=== PATIENT | female | born 1965 | race Caucasian/White ===

== ENCOUNTER 2025-05-23 18:05 | Emergency (ER) | payer OTHER, SELFPAY ==
[2025-05-23 18:21] VITALS: BP 175/80
[2025-05-23 18:57] LABS: Urine Character Clear (Clear)
[2025-05-23 19:00] LABS: Hematocrit 41.9 % (37.0-47.0); Hemoglobin 14.2 g/dL (12.0-16.0); Mean Corp Hgb Conc. 33.9 g/dL (33.0-37.0); Mean Corpuscular Volume 86.7 fL (81.0-99.0); Nucleated Red Blood Cells % 0 %; Platelet Count 397 10^3/uL (130-400); Red Cell Dist. Width 13.8 % (11.5-14.5)
[2025-05-23 19:11] LABS: ALT (SGPT) 23 U/L (0-35); AST (SGOT) 19 U/L (14-36); Albumin 4.8 g/dl (3.5-5.0); Alkaline Phosphatase 62 U/L (38-126); Blood Urea Nitrogen 16 mg/dl (7-17); Calcium 9.3 mg/dl (8.4-10.2); Carbon Dioxide 30 mmol/L (22-30); Chloride 99 mmol/L (98-107); Glucose 109 mg/dl (70-99); Lipase 181 U/L (23-300); Potassium 4.3 mmol/L (3.5-5.1); Sodium 135 mmol/L (135-145); Total Protein 7.8 g/dl (6.3-8.2); eGFR > 60.00
[2025-05-23 19:18] LABS: Urine Red Blood Cell 0-2 /HPF (0-2); Urine White Cell 0-2 /HPF (0-5)
[2025-05-23 20:22] VITALS: BMI 36.7
[2025-05-23 20:25] VITALS: BP 145/62
[2025-05-23 21:45] VITALS: BP 141/75
--- NOTE | 2025-05-23 22:45 | ED.GENMED ---
History of Present Illness
General
Chief Complaint: Abdominal Pain
Source: patient
Exam Limitations: none
Time Seen by Provider: 05/23/25 21:37
Nursing documentation reviewed up to this point in time: agreed with
History of Present Illness
History of Present Illness:
Patient presents ED secondary to right-sided abdominal pain started this morning. Abdominal pain described as crampy, right-sided, flank, radiation to lower abdomen, without any alleviating or alleviating factors. Denies trauma. Denies fever or
chills. Denies diarrhea. Of note, patient states that she has not had regular bowel movement for the past 1 week. Denies trauma. Denies recent change in medications or diet. Patient does have a history of kidney stones, but states that her
symptoms are different than what she has experienced in the past.
Review of Systems
Review of Systems
Allergies reviewed?: Yes
All Other Systems: ROS reviewed and negative except as documented in HPI and ROS
Constitutional: Reports no symptoms; Denies fever
Respiratory: Reports no symptoms
Cardiac: Reports no symptoms
ABD/GI: Reports abdominal pain; Denies nausea or vomiting
: Reports flank pain
Musculoskeletal: Reports no symptoms
Skin: Reports no symptoms
Neurological: Reports no symptoms
Phy Exam
Physical Exam
Physical Exam:
Physical Exam
General: no apparent distress, not acutely ill. afebrile
Head: nc/at. eomi
Neck: supple. no meningeal signs.
Heart: s1/s2 regular rate and rhythm
Lungs: no acute respiratory distress. clear bilaterally
Abdomen: normal bowel sounds. not tender. no distention
Neuro: alert and oriented x 3. no focal neurological deficits
Skin: no rash
Psychiatric: well kept. interactive and cooperative
Extremities: no edema. no calf tenderness.
Course
Orders/Labs/Results
Orders:
Orders
05/23/25 18:27
CR Obstruct Series W/pa Chest Urgent
Comment:
Reason For Exam: constipation
05/23/25 18:43
Urinalysis Reflex To Culture Urgent
Date Specimen was Collected: 05/23/25
Time Specimen was Collected: 18:27
Urine Microscopic Reflex Cult Urgent
05/23/25 18:47
Complete Blood Count/With Diff Urgent
Comprehensive Metabolic Panel Urgent
Lipase Urgent
05/23/25 21:58
US Abdomen Complete/Upper Urgent
Comment:
Reason For Exam: RUQ pain
05/23/25 22:49
CT Abd/pelvis W Iv Cont Urgent
Comment:
Reason For Exam: right sided abdominal pain
05/24/25 01:27
Magnesium Citrate [Citroma] 300 ml PO ONCE ONE
Abnormal Lab Results
05/23/25 05/23/25
18:43 18:47
WBC 13.4 H 10^3/uL
(4.8-10.8)
Abs Immat Gran (auto) 0.1 H 10^3/uL
(0-0.05)
Absolute Neuts (auto) 8.7 H 10^3/uL
(1.4-6.5)
Absolute Monos (auto) 1.0 H 10^3/uL
(0.1-0.6)
Immature Gran % 0.6 H %
(0-0.5)
Glucose 109 H mg/dl
(70-99)
Urine Bacteria (Reflex) Few A
(Negative)
Urine Albumin (Reflex) 1+ A
(Neg - Trace)
05/23/25 18:47
05/23/25 18:47
Vital Signs
Initial and Last Documented VS:
Initial Vital Signs
Temp Pulse Resp BP Pulse Ox
98.4 F 86 18 175/80 99
05/23/25 18:21 05/23/25 18:21 05/23/25 18:21 05/23/25 18:21 05/23/25 18:21
Last Documented Vital Signs
Temp Pulse Resp BP Pulse Ox
98.4 F 77 18 119/65 97
05/23/25 18:21 05/24/25 01:38 05/24/25 01:38 05/24/25 01:38 05/24/25 01:38
MDM/Problems Addressed
MDM/Problems Addressed:
Patient with an unremarkable coming ED, including blood work and multiple imaging studies. Patient otherwise is afebrile, hemodynamically stable, and nontoxic-appearing, at time of discharge. Patient will be advised to continue to use stool
softener/laxative at home, to promote bowel movements. Return precautions provided, i.e. fever/worsening pain/vomiting. Patient expresses understanding at time of discharge.
*Pulse Oximetry
SaO2: 99
Oxygen Mode of Delivery: Room air
Patient hypoxic: no
*Critical Care Note
Total Time (30-74mins, 75-104mins- exclusive of procedures): Not Applicable
ED Attending Note
-
Portions of this chart may have been created with voice recognition software.� Occasional wrong word or��sound alike� substitutions may have occurred due to the inherent limitations of voice recognition software.
Discharge Plan
Departure
Patient Disposition: Home (Routine Discharge)
Date of Disposition: 05/24/25
Time of Disposition: 01:28
Patient with high blood pressure during this ER visit?: Yes
Condition: Fair
Discharge Problem:
Abdominal pain
Instructions: High-fiber diet, Abdominal Pain
Referrals:
Jae Kuo MD [Family Provider]
Activity Restrictions/Additional Instructions:
As discussed, please follow-up with your primary care physician for reevaluation. Please consider return to ED with worsening symptoms, i.e. fever/worsening pain/vomiting.
Interventions
Interventions:
*Risk Screen - Suicide Last Done: 05/23/25 18:21
*General Assessment Last Done: 05/23/25 18:21
*Neglect/Abuse Screening Last Done: 05/23/25 18:21
*ED- Fall Risk Assessment Last Done: 05/23/25 20:22
*ED COVID-19 Vaccine History Last Done: 05/23/25 18:21
*ED Influenza Vaccine History Last Done: 05/23/25 18:21
*Nursing Disposition Last Done: 05/24/25 02:06
DZ-Mxgldw-Wtiqihovkh Assessment Last Done: 05/23/25 20:40
Discharge Date and Time
Discharge Date/Time: 05/24/25 01:40
Print Language: SPANISH
[2025-05-24] MEDS: CITROMA 300 ML PO (01:35)
[2025-05-24 01:38] VITALS: BP 119/65
== END 2025-05-24 01:40 | disposition home or self-care (01) ==
LOC: EMR 18:05
PROVIDERS: Student in an Organized Health Care Education/Training Program; EMERGENCY PHYSICIAN Emergency Medicine; FAMILY PHYSICIAN Internal Medicine
DX: R10.11 Right upper quadrant pain (principal); K59.00 Constipation, unspecified; Z87.442 Personal history of urinary calculi
CPT/HCPCS: 99284; 74022; 74177; 76700; 80053; 81003; 81015; 83690; 85025; Q9967